=== PATIENT | female | born 1930 | race Caucasian/White ===

== ENCOUNTER → 2016-08-20 | Outpatient (CLI) | payer MEDICARE, BC ==
--- NOTE | 2016-08-21 06:48 | PE ---
EXAMINATION TYPE: PET CT fusion skull to thigh DATE OF EXAM: 08/20/2016 1:24 PM CLINICAL HISTORY: Melanoma initial staging study diagnosed right lower extremity TECHNIQUE: Following the intravenous administration of 12.28 mCi of F-18 FDG, whole body images are performed from the top of skull to the bottom of feet. Images are reviewed on the computer in the c oronal, axial, and sagittal planes. Reconstructed rotating images are created on independent worksta tion and reviewed on the computer. A non-contrast CT is performed in conjunction with the PET scan. COMPARISON: None. FINDINGS: BRAIN: Normal physiologic uptake in the brain parenchyma is present. No suspicious scalp or soft tiss ue uptake is noted. NECK: No suspicious hypermetabolic uptake is seen in the neck. CHEST, MEDIASTINUM, AND HILAR REGION: No suspicious hypermetabolic uptake is seen in the thorax. Norm al physiologic uptake in the left ventricular wall is noted. ABDOMEN AND PELVIS: No suspicious hypermetabolic uptake is seen in the abdomen or pelvis. Normal excr etion and collecting system and bladder is present.No suspicious groin uptake is present. OSSEOUS STRUCTURES: No suspicious hypermetabolic uptake is seen in osseous structures. LOWER EXTREMITIES: There is abnormal hypermetabolic uptake in soft tissue lesion anterior medially in the right lower leg mid to distal diaphyseal level on axial image 188 measuring 2.6 x 1.1 cm abuttin g the skin surface with max SUV of 9.38. Lesion nearly abuts the tibial outer cortex. Inferior to this there are several smaller hypermetabolic soft tissue nodules in the skin with abnor mal hypermetabolic uptake at distal metadiaphyseal level in the right extremity. No areas of suspicious hypermetabolic uptake are seen in the right foot or in the entire left lower e xtremity. OTHER CT: There is age-related cerebral atrophy and chronic small vessel ischemic change in visualize d brain parenchyma. There are scleral calcifications in both globes. There is moderate calcified plaque at left carotid bulb. Heart size is mildly enlarged with three-vessel coronary artery calcification noted. There is mild emphysematous change with dependent atelectatic change seen in both lower lobes. There is moderate calcified plaque in the aorta extending into pelvic branch vessels. There is anterior axis to the left kidney. Bladder is slightly low lying. There are scattered pelvic phleboliths. There are injection granulomas in the bilateral thighs lateral aspects. IMPRESSION: Neoplasm or melanoma appears to be confined to the distal right lower extremity medial as pect continues tissue as detailed above. No metastatic disease is evident.
== END | disposition home or self-care (01) ==
LOC: RADPETMAIN 09:00
PROVIDERS: ATTEND Nurse Practitioner
DX: C79.9 Secondary malignant neoplasm of unspecified site (principal); C43.71 Malignant melanoma of right lower limb, including hip
CPT/HCPCS: 78815; A9552

== ENCOUNTER → 2017-01-21 | Outpatient (CLI) | payer MEDICARE, BC ==
--- NOTE | 2017-01-22 08:50 | PE ---
EXAMINATION TYPE: PET CT fusion whole body DATE OF EXAM: 01/21/2017 CLINICAL HISTORY: 86-year-old female restaging melanoma. Original site of disease left leg per patien t status post surgery. TECHNIQUE: Following the intravenous administration of 15.71 mCi of F-18 FDG, whole body images are performed from the skull vertex through the lower extremities. Images are reviewed on the computer i n the coronal, axial, and sagittal planes. Reconstructed rotating images are created on independent workstation and reviewed on the computer. A localization and attenuation correction CT is performed in conjunction with the PET scan. Glucose level: 95 mg/dL CTDI: 2.88/1.44 mGY DLP: 358.38/92.44 mGy-cm COMPARISON: 08/20/2016 FINDINGS: PET: Physiologic FDG uptake within the head and neck. A 1.9 cm patch of groundglass anterior right upper lobe appears slightly larger measuring 1.6 cm, pre viously. There is very minimal associated FDG uptake, max SUV 1.0. A 5 mm right middle lobe pulmonary nodule axial image 133 is unchanged and shows no discrete FDG upta ke. Mildly enlarged 9 mm left para-aortic lymph node axial image 197 is slightly larger from prior exam w here it measured 7 mm. No discrete FDG uptake Variable mild and moderate bowel uptake is likely physiologic. Within the distal third aspect of the medial right leg, the previous large cutaneous and subcutaneous mass located anteromedially is slightly decreased now measuring 2.7 x 1.0 cm (max SUV 5.8) versus 2. 9 x 1.4 cm (max SUV 9.4), previously, the cutaneous mass located just posterior along the medial aspe ct of the length has increased in size measuring 1.7 x 0.8 cm (max SUV 5.0 versus 2.5, previously). I n addition, there are new numerous satellite nodules throughout the medial distal third leg soft tiss ues that show variable FDG uptake. Some abnormal nodules are now also present anteriorly reaching up to the mid leg level. A tiny 6 mm soft tissue nodule in the subcutaneous fat medially of the upper third leg is also suspic ious with mild FDG uptake, max SUV 1.2. ATTENUATION CORRECTION CT: Visualized intracranial structures show no gross abnormality. Paranasal sinuses and mastoid air cells appear clear. No cervical lymphadenopathy seen. The heart is normal size without pericardial effusion. Coronary vessel calcifications are present in remarkable for coronary artery disease. Moderate atherosclerotic arch calcifications with conventiona l arch vessel branching anatomy. Scattered nonenlarged mediastinal lymph nodes. Mild diffuse bronchi al wall thickening suggests bronchitis or chronic asthma. Strandy scarring/atelectasis at the lung ba ses. Small hiatal hernia. Moderate atherosclerotic calcifications within the abdominal aorta and iliac art eries. No dilated small bowel, free fluid, or free air. Multiple circumferential bladder wall thickening could represent cystitis. Clinically correlate. Uter us and ovaries are visualized. No abnormal fluid collection pelvis. Bones: Old healed fracture deformity proximal right humerus. Endplate spondylosis mid to lower thorac ic spine. There is a degenerated levoconvex scoliosis of the lumbar spine. Mild degenerative changes of hips. IMPRESSION: 1. Multiple cutaneous/subcutaneous masses along the medial aspect of the distal third right leg. Whil e the dominant mass is smaller (2.7 x 1.0 cm versus 2.9 x 1.4 cm) with decreased uptake, there is new and progressive satellite nodularity just adjacent. New nodules are now seen anteriorly at the mid l eg level and a tiny 6 mm subcutaneous nodule medial aspect of the proximal third leg is also suspicio us for metastatic disease. 2. A mildly enlarged 9 mm left paraaortic lymph node has increased in size but shows no discrete FDG uptake. A reactive lymph node is suggested. 3. An enlarging 1.9 cm patch of groundglass in the anterior left upper lobe. This shows minimal FDG u ptake. While an infectious/inflammatory focus is likely, continued follow-up is recommended to exclud e low-grade neoplasm such as adenocarcinoma. 4. The 5 mm right middle lobe pulmonary nodule is unchanged and shows no uptake suggesting a benign e tiology.
== END | disposition home or self-care (01) ==
LOC: RADPETMAIN 07:29
PROVIDERS: ATTEND Internal Medicine Hematology & Oncology
DX: C43.71 Malignant melanoma of right lower limb, including hip (principal); R91.1 Solitary pulmonary nodule; R91.8 Other nonspecific abnormal finding of lung field; R22.41 Localized swelling, mass and lump, right lower limb; R59.0 Localized enlarged lymph nodes
CPT/HCPCS: 78816; A9552

== ENCOUNTER → 2017-03-04 | Outpatient (CLI) | payer MEDICARE, BC ==
--- NOTE | 2017-03-05 21:08 | PE ---
Nuclear medicine PET/CT HISTORY: Melanoma Patient received 12.1 mCi F-18 FDG intravenously. Delayed scanning performed through the whole body. Correlation to prior nuclear medicine PET/CT 01/21/2017 Neck and chest: No suspicious hypermetabolic uptake. No evident adenopathy. Focus of abnormal increas ed attenuation in the left upper lobe is again noted, groundglass opacity is present as on prior exam , there is a right lung nodule which is also stable. No associated hypermetabolic uptake. Abdomen pelvis: No evident liver mass. No retroperitoneal adenopathy. No suspicious hypermetabolic up take. Osseous structures are stable, degenerative disc disease, spinal stenosis, facet arthropathy noted es pecially in the lumbar spine. EXTREMITIES: The areas of abnormal hypermetabolic uptake involving the distal right leg are scattered and diffuse as on prior exam. There is some slight interval growth in the soft tissue mass is within the skin and subcutaneous fat. SUV values are approximately 3-6. IMPRESSION: Some interval increase in size in the patient's masses within the right leg.
== END | disposition home or self-care (01) ==
LOC: RADPETMAIN 08:18
PROVIDERS: ATTEND Internal Medicine Hematology & Oncology
DX: C43.71 Malignant melanoma of right lower limb, including hip (principal)
CPT/HCPCS: 78816; A9552

== ENCOUNTER 2017-03-18 19:46 | Inpatient (IN) | payer MEDICARE, BC ==
[2017-03-18] MEDS ORDERED: SODIUM CHLORIDE 0.9% 500 ML IV STA (19:48)
[2017-03-18] MEDS ORDERED: SODIUM CHLORIDE 0.9% 1,000 ML IV STA (19:48)
--- NOTE | 2017-03-18 20:19 | ED ---
General Adult HPI - General Chief complaint: Fall Stated complaint: fall Time Seen by Provider: 03/18/17 19:48 Source: patient, family, EMS, RN notes reviewed, old records reviewed Mode of arrival: EMS Limitations: altered mental status, physical limitation - History of Present Illness Initial comments: This is a 87-year-old female to the ER for evaluation. This patient presents today for evaluation in regards to fall. Patient had what is likely a trip and fall but unknown, patient was found down and had an unknown amount of downtime. Patient's poor strain history obtained from EMS and patient's neighbor who called EMS who found patient on ground in house. Patient does appear to have deformity of right leg. - Related Data Home Medications Medication Instructions Recorded Confirmed Naproxen [Naprosyn] 375 mg PO Q12HR 11/28/15 03/19/17 Donepezil [Aricept] 10 mg PO HS 03/18/17 03/19/17 Nystatin 100,000Unit/gm Cream 1 applic TOPICAL BID 03/19/17 03/19/17 [Mycostatin Cream] Allergies Allergy/AdvReac Type Severity Reaction Status Date / Time No Known Allergies Allergy Verified 03/19/17 12:16 Review of Systems ROS Statement: Those systems with pertinent positive or pertinent negative responses have been documented in the HPI. ROS Other: All systems not noted in ROS Statement are negative. Past Medical History Past Medical History: Atrial Fibrillation, Rheumatoid Arthritis (RA) Additional Past Medical History / Comment(s): mitral valve prolapse osteoporosis melanoma to her RLE. History of Any Multi-Drug Resistant Organisms: None Reported Past Surgical History: No Surgical Hx Reported, Tonsillectomy Past Psychological History: No Psychological Hx Reported Smoking Status: Never smoker Past Alcohol Use History: None Reported Past Drug Use History: None Reported General Exam - General Exam Comments Initial Comments: Right leg deformity Limitations: altered mental status, physical limitation General appearance: alert, in no apparent distress, in distress, cachectic Head exam: Present: atraumatic, normocephalic, normal inspection Eye exam: Present: normal appearance, PERRL, EOMI. Absent: scleral icterus, conjunctival injection, periorbital swelling ENT exam: Present: normal exam, mucous membranes moist Neck exam: Present: normal inspection. Absent: tenderness, meningismus, lymphadenopathy Respiratory exam: Present: normal lung sounds bilaterally. Absent: respiratory distress, wheezes, rales, rhonchi, stridor Cardiovascular Exam: Present: regular rate, normal rhythm, normal heart sounds. Absent: systolic murmur, diastolic murmur, rubs, gallop, clicks GI/Abdominal exam: Present: soft, normal bowel sounds. Absent: distended, tenderness, guarding, rebound, rigid Extremities exam: Present: normal inspection, full ROM, normal capillary refill. Absent: tenderness, pedal edema, joint swelling, calf tenderness Back exam: Present: normal inspection Neurological exam: Present: alert, oriented X3, CN II-XII intact Psychiatric exam: Present: normal affect, normal mood Skin exam: Present: warm, dry, intact, normal color. Absent: rash Course Vital Signs 03/18/17 03/18/17 03/18/17 19:47 20:31 21:23 Temperature 98.2 F Pulse Rate 77 73 75 Respiratory 18 18 18 Rate Blood Pressure 204/84 192/82 177/68 O2 Sat by Pulse 98 100 100 Oximetry 03/18/17 22:20 Temperature Pulse Rate 72 Respiratory 18 Rate Blood Pressure 168/70 O2 Sat by Pulse 100 Oximetry - Reevaluation(s) Reevaluation #1: Spoke with family and patient at length, patient has dementia so difficult to portray and answer questions, but informed of diagnosis and questions are answered EKG Findings - EKG Comments: EKG Findings:: EKG shows normal sinus rhythm rate of 71, AK 160, QRS 76, QTC 445 Medical Decision Making - Medical Decision Making 87 female to ER presentation status post fall, prolonged down.. Positive urinary check infection which we'll treat with IV antibiotics, patient will be given adequate pain control admitted for orthopedic evaluation regarding right hip fracture - Lab Data Result diagrams: 03/18/17 20:20 03/18/17 20:20 Lab Results 03/18/17 03/18/17 03/18/17 Range/Units 20:19 20:20 20:20 WBC 10.4 (3.8-10.6) k/uL RBC 3.74 L (3.80-5.40) m/uL Hgb 10.7 L (11.4-16.0) gm/dL Hct 34.2 (34.0-46.0) % MCV 91.5 (80.0-100.0) fL MCH 28.6 (25.0-35.0) pg MCHC 31.3 (31.0-37.0) g/dL RDW 14.6 (11.5-15.5) % Plt Count 255 (150-450) k/uL Neutrophils % 78 % Lymphocytes % 12 % Monocytes % 8 % Eosinophils % 0 % Basophils % 0 % Neutrophils # 8.1 H (1.3-7.7) k/uL Lymphocytes # 1.2 (1.0-4.8) k/uL Monocytes # 0.8 (0-1.0) k/uL Eosinophils # 0.0 (0-0.7) k/uL Basophils # 0.0 (0-0.2) k/uL Hypochromasia Moderate PT (9.0-12.0) sec INR (<1.2) APTT (22.0-30.0) sec Sodium (137-145) mmol/L Potassium (3.5-5.1) mmol/L Chloride (98-107) mmol/L Carbon Dioxide (22-30) mmol/L Anion Gap mmol/L BUN (7-17) mg/dL Creatinine (0.52-1.04) mg/dL Est GFR (MDRD) Af Amer (>60 ml/min/1.73 sqM) Est GFR (MDRD) Non-Af (>60 ml/min/1.73 sqM) Glucose (74-99) mg/dL Plasma Lactic Acid Jorge Luis (0.7-2.0) mmol/L Calcium (8.4-10.2) mg/dL Phosphorus (2.5-4.5) mg/dL Total Bilirubin (0.2-1.3) mg/dL AST (14-36) U/L ALT (9-52) U/L Alkaline Phosphatase (38-126) U/L Total Creatine Kinase 783 H (30-135) U/L CK-MB (CK-2) 9.6 H* (0.0-2.4) ng/mL CK-MB (CK-2) Rel Index 1.2 Troponin I 0.024 (0.000-0.034) ng/mL Total Protein (6.3-8.2) g/dL Albumin (3.5-5.0) g/dL Urine Color Light Green Urine Appearance Turbid H (Clear) Urine pH 5.5 (5.0-8.0) Ur Specific [place] 1.014 (1.001-1.035) Urine Protein 2+ H (Negative) Urine Glucose (UA) Negative (Negative) Urine Ketones Negative (Negative) Urine Blood Small H (Negative) Urine Nitrite Positive H (Negative) Urine Bilirubin Negative (Negative) Urine Urobilinogen <2.0 (<2.0) mg/dL Ur Leukocyte Esterase Large H (Negative) Urine RBC 97 H (0-5) /hpf Urine WBC >182 H (0-5) /hpf Urine WBC Clumps Many H (None) /hpf Amorphous Sediment Moderate H (None) /hpf Urine Bacteria Few H (None) /hpf 03/18/17 03/18/17 03/18/17 Range/Units 20:20 20:20 20:20 WBC (3.8-10.6) k/uL RBC (3.80-5.40) m/uL Hgb (11.4-16.0) gm/dL Hct (34.0-46.0) % MCV (80.0-100.0) fL MCH (25.0-35.0) pg MCHC (31.0-37.0) g/dL RDW (11.5-15.5) % Plt Count (150-450) k/uL Neutrophils % % Lymphocytes % % Monocytes % % Eosinophils % % Basophils % % Neutrophils # (1.3-7.7) k/uL Lymphocytes # (1.0-4.8) k/uL Monocytes # (0-1.0) k/uL Eosinophils # (0-0.7) k/uL Basophils # (0-0.2) k/uL Hypochromasia PT 11.9 (9.0-12.0) sec INR 1.2 H (<1.2) APTT 24.3 (22.0-30.0) sec Sodium 138 (137-145) mmol/L Potassium 4.3 (3.5-5.1) mmol/L Chloride 107 (98-107) mmol/L Carbon Dioxide 23 (22-30) mmol/L Anion Gap 8 mmol/L BUN 20 H (7-17) mg/dL Creatinine 0.63 (0.52-1.04) mg/dL Est GFR (MDRD) Af Amer >60 (>60 ml/min/1.73 sqM) Est GFR (MDRD) Non-Af >60 (>60 ml/min/1.73 sqM) Glucose 104 H (74-99) mg/dL Plasma Lactic Acid Jorge Luis 1.2 (0.7-2.0) mmol/L Calcium 9.2 (8.4-10.2) mg/dL Phosphorus 3.4 (2.5-4.5) mg/dL Total Bilirubin 1.0 (0.2-1.3) mg/dL AST 49 H (14-36) U/L ALT 31 (9-52) U/L Alkaline Phosphatase 59 (38-126) U/L Total Creatine Kinase (30-135) U/L CK-MB (CK-2) (0.0-2.4) ng/mL CK-MB (CK-2) Rel Index Troponin I (0.000-0.034) ng/mL Total Protein 6.1 L (6.3-8.2) g/dL Albumin 3.4 L (3.5-5.0) g/dL Urine Color Urine Appearance (Clear) Urine pH (5.0-8.0) Ur Specific [place] (1.001-1.035) Urine Protein (Negative) Urine Glucose (UA) (Negative) Urine Ketones (Negative) Urine Blood (Negative) Urine Nitrite (Negative) Urine Bilirubin (Negative) Urine Urobilinogen (<2.0) mg/dL Ur Leukocyte Esterase (Negative) Urine RBC (0-5) /hpf Urine WBC (0-5) /hpf Urine WBC Clumps (None) /hpf Amorphous Sediment (None) /hpf Urine Bacteria (None) /hpf - Radiology Data Radiology results: report reviewed (CT brain and C-spine are negative for acute disease, chest x-ray is negative, x-ray right hip is positive for IT fracture), image reviewed Disposition Clinical Impression: Fall, Hip fracture, right, UTI (urinary tract infection) Disposition: ADMITTED IP TO THIS [facility] Condition: Fair
[2017-03-18 20:51] LABS: Basophils % (A) 0 %; CH 27.9; CHCM 30.7; Eosinophils % (A) 0 %; HCT 34.2 % (34.0-46.0); HDW 2.62; HGB 10.7 gm/dL (11.4-16.0); Hypochromasia Moderate; Luc # (Auto) 0.17; Luc % (Auto) 2; Lymphocytes # (A) 1.2 k/uL (1.0-4.8); Lymphocytes % (A) 12 %; MCH 28.6 pg (25.0-35.0); MCHC 31.3 g/dL (31.0-37.0); MCV 91.5 fL (80.0-100.0); Mean Platelet Volume 7.3; Monocytes # (A) 0.8 k/uL (0-1.0); Monocytes % (A) 8 %; Neutrophils # (A) 8.1 k/uL (1.3-7.7); Neutrophils % (A) 78 %; RBC 3.74 m/uL (3.80-5.40); RDW 14.6 % (11.5-15.5); WBC 10.4 k/uL (3.8-10.6); WBC (Perox) 10.71
[2017-03-18 20:59] LABS: ALT 31 U/L (9-52); AST 49 U/L (14-36); Alkaline Phosphatase 59 U/L (38-126); Anion Gap 8 mmol/L; Blood Urea Nitrogen 20 mg/dL (7-17); Calcium 9.2 mg/dL (8.4-10.2); Carbon Dioxide 23 mmol/L (22-30); Chloride 107 mmol/L (98-107); Glucose 104 mg/dL (74-99); Non-African American GFR(MDRD) >60 (>60 ml/min/1.73 sqM); Phosphorus 3.4 mg/dL (2.5-4.5); Potassium 4.3 mmol/L (3.5-5.1); Sodium 138 mmol/L (137-145); Total Protein 6.1 g/dL (6.3-8.2)
[2017-03-18] MEDS ORDERED: MORPHINE SULFATE 2 MG/ML SYRINGE IVP STA (21:00)
[2017-03-18] MEDS ORDERED: cefTRIAXone 2,000 MG in SODIUM CHLORIDE 0.9% 100 ML IVPB STA (21:00)
[2017-03-18] MEDS ORDERED: MORPHINE SULFATE 2 MG/ML SYRINGE IVP PRN (21:00)
--- NOTE | 2017-03-18 21:00 | CT ---
EXAMINATION TYPE: CT brain edna [place] DATE OF EXAM: 03/18/2017 COMPARISON: NONE HISTORY: Fall today. Complains of right sided hip pain CT DLP: 1413.3 mGycm Automated exposure control for dose reduction was used. TECHNIQUE: CT scan of the head and cervical spine are performed without contrast. FINDINGS: There is no acute intracranial hemorrhage, mass effect, or midline shift identified. The ventricles and sulci are atrophic. The globes are intact and the visualized sinuses are clear. No acute fracture or dislocation is noted in the cervical spine. There is diffuse amounts of endplate spurring as well as facet hypertrophy which cause multiple low-level neural foraminal narrowing. The se findings appear worse at the level C5-6 and C6-7 where there is posterior endplate spurring and hy pertrophic spurring which effaces the ventral thecal sac and causes mild neural foraminal narrowing. IMPRESSION: Senescent and degenerative changes are identified without an acute abnormality.
[2017-03-18 21:01] LABS: Amorphous Sediment,Urine Moderate /hpf; Appearance,Urine Turbid (Clear); Bacteria,Urine Few /hpf; Bilirubin,Urine Negative (Negative); Glucose,Urine (UA) Negative (Negative); Ketones,Urine Negative (Negative); Leukocyte Esterase,Urine Large (Negative); Nitrite,Urine Positive (Negative); PH, Urine 5.5 (5.0-8.0); Particle Count 174400; Protein,Urine 2+ (Negative); RBC,Urine 97 /hpf (0-5); Specific Gravity,Urine 1.014 (1.001-1.035); UA Billing (MACRO vs. MICRO) MICRO; Urobilinogen,Urine <2.0 mg/dL (<2.0); WBC,Urine >182 /hpf (0-5)
--- NOTE | 2017-03-18 21:11 | XR ---
EXAMINATION TYPE: XR chest 1V DATE OF EXAM: 03/18/2017 COMPARISON: NONE HISTORY: Right hip pain and chest pain. TECHNIQUE: Single frontal view of the chest is obtained. FINDINGS: There is no focal air space opacity, pleural effusion, or pneumothorax seen. The cardiac silhouette size is within normal limits. Calcifications are identified in the aortic arch. The osse ous structures are intact. IMPRESSION: No acute process.
[2017-03-18 21:12] LABS: Partial Thromboplastin Time 24.3 sec (22.0-30.0)
--- NOTE | 2017-03-18 21:14 | XR ---
EXAMINATION TYPE: XR Hip RT and AP Pelvis DATE OF EXAM: 03/18/2017 COMPARISON: NONE HISTORY: Right hip pain TECHNIQUE: A single AP view of the pelvis is obtained. Two views of the right hip are obtained. FINDINGS: There is an acute complete comminuted fracture of the intertrochanteric right hip. There is 4 cm of impaction. The distal fragment is displaced medially. Soft tissue structures demonstrate stool within the colon. There is diffuse osteopenia. IMPRESSION: Acute complete comminuted intertrochanteric fracture of the right femur with impaction and slight med ial displacement.
[2017-03-18 21:15] LABS: INR 1.2 (<1.2); Prothrombin Time 11.9 sec (9.0-12.0)
[2017-03-18 21:25] LABS: Troponin I 0.024 ng/mL (0.000-0.034)
[2017-03-18 21:32] LABS: Creatine Kinase MB 9.6 ng/mL (0.0-2.4)
[2017-03-18] MEDS ORDERED: FLUCONAZOLE 150 MG TAB PO STA (22:17)
--- NOTE | 2017-03-19 08:43 | P.CNOR ---
History of Present Illness - [facility] Consult date: 03/19/17 Consult reason: fracture (Right hip) History of present illness: This is an 87-year-old female who fell sustaining injury to her right hip. On exam and x-ray in the emergency department she was found to have a subtrochanteric fracture of the right hip. She is admitted to internal medicine and we are consulted for orthopedic evaluation. The patient has history of dementia and history of atrial fibrillation. Past Medical History Past Medical History: Atrial Fibrillation, Rheumatoid Arthritis (RA) Additional Past Medical History / Comment(s): mitral valve prolapse osteoporosis melanoma to her RLE. History of Any Multi-Drug Resistant Organisms: None Reported Past Surgical History: No Surgical Hx Reported, Tonsillectomy Past Anesthesia/Blood Transfusion Reactions: No Reported Reaction Past Psychological History: No Psychological Hx Reported Smoking Status: Never smoker Past Alcohol Use History: None Reported Past Drug Use History: None Reported Medications and Allergies Home Medications Medication Instructions Recorded Confirmed Type Aspirin [Aspirin EC] 500 mg PO BID 11/28/15 11/28/15 History Naproxen [Naprosyn] 375 mg PO Q12HR 11/28/15 11/28/15 History Donepezil [Aricept] 1 mg PO HS 03/18/17 03/18/17 History Allergies Allergy/AdvReac Type Severity Reaction Status Date / Time No Known Allergies Allergy Verified 03/18/17 20:14 Physical Examination This is a pleasant 87-year-old female in no acute distress. She is sleeping soundly. She does not awaken during the exam. Exam of the head neck reveal no obvious deformity. There is no sign of trauma to the face. Exam of the upper extremities unremarkable. No swelling or deformity noted to the elbows or wrists. Exam of the lower extremities reveal shortening and external rotation of the right leg. There are multiple invasive lesions about the right lower leg. No sign of infection to this area. Pedal pulses +1/4. Results X-ray of the pelvis and right hip reveal a displaced and shortened subtrochanteric fracture of the right hip. - Labs Labs: Abnormal Lab Results - Last 24 Hours (Table) 03/18/17 03/18/17 03/18/17 Range/Units 20:19 20:20 20:20 RBC 3.74 L (3.80-5.40) m/uL Hgb 10.7 L (11.4-16.0) gm/dL Neutrophils # 8.1 H (1.3-7.7) k/uL INR (<1.2) BUN (7-17) mg/dL Glucose (74-99) mg/dL AST (14-36) U/L Total Creatine Kinase 783 H (30-135) U/L CK-MB (CK-2) 9.6 H* (0.0-2.4) ng/mL Total Protein (6.3-8.2) g/dL Albumin (3.5-5.0) g/dL Urine Appearance Turbid H (Clear) Urine Protein 2+ H (Negative) Urine Blood Small H (Negative) Urine Nitrite Positive H (Negative) Ur Leukocyte Esterase Large H (Negative) Urine RBC 97 H (0-5) /hpf Urine WBC >182 H (0-5) /hpf Urine WBC Clumps Many H (None) /hpf Amorphous Sediment Moderate H (None) /hpf Urine Bacteria Few H (None) /hpf 03/18/17 03/18/17 Range/Units 20:20 20:20 RBC (3.80-5.40) m/uL Hgb (11.4-16.0) gm/dL Neutrophils # (1.3-7.7) k/uL INR 1.2 H (<1.2) BUN 20 H (7-17) mg/dL Glucose 104 H (74-99) mg/dL AST 49 H (14-36) U/L Total Creatine Kinase (30-135) U/L CK-MB (CK-2) (0.0-2.4) ng/mL Total Protein 6.1 L (6.3-8.2) g/dL Albumin 3.4 L (3.5-5.0) g/dL Urine Appearance (Clear) Urine Protein (Negative) Urine Blood (Negative) Urine Nitrite (Negative) Ur Leukocyte Esterase (Negative) Urine RBC (0-5) /hpf Urine WBC (0-5) /hpf Urine WBC Clumps (None) /hpf Amorphous Sediment (None) /hpf Urine Bacteria (None) /hpf H & H 03/18/17 Range/Units 20:20 Hgb 10.7 L (11.4-16.0) gm/dL Hct 34.2 (34.0-46.0) % Coagulation 03/18/17 Range/Units 20:20 INR 1.2 H (<1.2) Result Diagrams: 03/18/17 20:20 03/18/17 20:20 Assessment and Plan (1) Subtrochanteric fracture of right femur Status: Acute (2) Malignant melanoma of right lower leg Status: Acute Plan: The clinical and x-ray findings are discussed with the nursing staff. We're planning closed reduction and insertion of long intertrochanteric nail of the right hip today if cleared. We'll contact the legal guardian for consent.
[2017-03-19] MEDS: ENOXAPARIN 40 MG/0.4 ML SYRINGE SQ SCH (09:07)
[2017-03-19] MEDS ORDERED: ACETAMINOPHEN TAB 325 MG TAB PO PRN (09:14)
[2017-03-19] MEDS ORDERED: KETOROLAC 30 MG/ML 1 ML VIAL IVP PRN (09:14)
--- NOTE | 2017-03-19 09:21 | P.HPIM ---
History of Present Illness 16-year-old female was admitted for right hip fracture patient appears to a mechanical fracture and subtrochanteric fracture of the right hip and patient is going for surgery today. Patient appears to be independent at home and I'm unable to get much of the history from the patient most of the history was obtained from the nursing staff and the medical record it appears patient has a history of atrial fibrillation on anti-correlation not on any medications at home patient does not have any history of Congestive heart failure or coronary artery disease. Patient is confused because the opiate pain medications and I' m unable to get much of the history from the patient I do not know her baseline mental status. Chest x-ray did not show any pneumonic process compresses metabolic profile and basic metabolic profile did not show any significant abnormality. Patient will be low to intermediate risk for surgery just because the age, recent benefits will be expanded to the patient and surgery does definitely improved functionality because of which I would recommend to the patient and family to proceed with the surgery. Review of Systems Unable to obtain due to her clinical condition Past Medical History Past Medical History: Atrial Fibrillation, Rheumatoid Arthritis (RA) Additional Past Medical History / Comment(s): mitral valve prolapse osteoporosis melanoma to her RLE. History of Any Multi-Drug Resistant Organisms: None Reported Past Surgical History: No Surgical Hx Reported, Tonsillectomy Past Anesthesia/Blood Transfusion Reactions: No Reported Reaction Past Psychological History: No Psychological Hx Reported Smoking Status: Never smoker Past Alcohol Use History: None Reported Past Drug Use History: None Reported Medications and Allergies Home Medications Medication Instructions Recorded Confirmed Type Aspirin [Aspirin EC] 500 mg PO BID 11/28/15 11/28/15 History Naproxen [Naprosyn] 375 mg PO Q12HR 11/28/15 11/28/15 History Donepezil [Aricept] 1 mg PO HS 03/18/17 03/18/17 History Allergies Allergy/AdvReac Type Severity Reaction Status Date / Time No Known Allergies Allergy Verified 03/18/17 20:14 Physical Exam Vitals: Vital Signs Temp Pulse Pulse Resp BP BP Pulse Ox 03/18/17 22:51 97.9 F 92 16 169/69 100 03/18/17 22:20 72 18 168/70 100 03/18/17 21:23 75 18 177/68 100 03/18/17 20:31 73 18 192/82 100 03/18/17 19:47 98.2 F 77 18 204/84 98 Intake and Output 03/18/17 03/19/17 03/19/17 22:59 06:59 14:59 Intake Total 900 Balance 900 Intake: Intake, IV Titration 900 Amount Sodium Chloride 0.9% 1, 800 000 ml @ 100 mls/hr IV . Q10H [facility] Rx#:[id number] cefTRIAXone 1,000 mg In 100 Sodium Chloride 0.9% 50 ml @ 100 mls/hr IVPB Q24HR [facility] Rx#:[id number] Other: Voiding Method Indwelling Catheter # Bowel Movements 1 Weight 63.503 kg PHYSICAL EXAMINATION: GENERAL: The patient is sleepy unable doses orientation, not in any acute distress. Well developed, well nourished. HEENT: Pupils are round and equally reacting to light. EOMI. No scleral icterus. No conjunctival pallor. Normocephalic, atraumatic. No pharyngeal erythema. No thyromegaly. CARDIOVASCULAR: S1 and S2 present. No murmurs, rubs, or gallops. PULMONARY: Chest is clear to auscultation, no wheezing or crackles. ABDOMEN: Soft, nontender, nondistended, normoactive bowel sounds. No palpable organomegaly. MUSCULOSKELETAL: No joint swelling or deformity. EXTREMITIES: Deferred to orthopedic surgery NEUROLOGICAL: Gross neurological examination did not reveal any focal deficits. SKIN: No rashes. Results CBC & Chem 7: 03/18/17 20:20 03/18/17 20:20 Labs: Abnormal Lab Results - Last 24 Hours (Table) 03/18/17 03/18/17 03/18/17 Range/Units 20:19 20:20 20:20 RBC 3.74 L (3.80-5.40) m/uL Hgb 10.7 L (11.4-16.0) gm/dL Neutrophils # 8.1 H (1.3-7.7) k/uL INR (<1.2) BUN (7-17) mg/dL Glucose (74-99) mg/dL AST (14-36) U/L Total Creatine Kinase 783 H (30-135) U/L CK-MB (CK-2) 9.6 H* (0.0-2.4) ng/mL Total Protein (6.3-8.2) g/dL Albumin (3.5-5.0) g/dL Urine Appearance Turbid H (Clear) Urine Protein 2+ H (Negative) Urine Blood Small H (Negative) Urine Nitrite Positive H (Negative) Ur Leukocyte Esterase Large H (Negative) Urine RBC 97 H (0-5) /hpf Urine WBC >182 H (0-5) /hpf Urine WBC Clumps Many H (None) /hpf Amorphous Sediment Moderate H (None) /hpf Urine Bacteria Few H (None) /hpf 03/18/17 03/18/17 Range/Units 20:20 20:20 RBC (3.80-5.40) m/uL Hgb (11.4-16.0) gm/dL Neutrophils # (1.3-7.7) k/uL INR 1.2 H (<1.2) BUN 20 H (7-17) mg/dL Glucose 104 H (74-99) mg/dL AST 49 H (14-36) U/L Total Creatine Kinase (30-135) U/L CK-MB (CK-2) (0.0-2.4) ng/mL Total Protein 6.1 L (6.3-8.2) g/dL Albumin 3.4 L (3.5-5.0) g/dL Urine Appearance (Clear) Urine Protein (Negative) Urine Blood (Negative) Urine Nitrite (Negative) Ur Leukocyte Esterase (Negative) Urine RBC (0-5) /hpf Urine WBC (0-5) /hpf Urine WBC Clumps (None) /hpf Amorphous Sediment (None) /hpf Urine Bacteria (None) /hpf Thrombosis Risk Factor Assmnt - Choose All That Apply Each Risk Factor Represents 3 Points: Age 75 years or older Each Risk Factor Represents 5 Points: Hip, pelvis, or leg fracture (< 1 month) Thrombosis Risk Factor Assessment Total Risk Factor Score: 8 Thrombosis Risk Factor Assessment Level: High Risk Assessment and Plan Plan: #1 right intertrochanteric fracture: As mentioned above patient is low to intermediate risk for surgery. With a history of atrial fibrillation then the chance that patient can go into atrial fibrillation. We'll closely monitor and manage accordingly. #2 pain management: The common to avoid opiate and ALLERGIES here, benzodiazepines barbiturates are anticollagen medications considering her age and moderate dementia. We will use ketorolac, tramadol and Tylenol for pain. DVT prophylaxis as per orthopedic surgery. #3 atrial fibrillation: Patient is presently sinus rhythm will not start her on a beta devin as there is not enough time for titration. 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
[2017-03-19] MEDS ORDERED: ceFAZolin 1,000 MG VIAL ONE (10:14)
[2017-03-19] MEDS ORDERED: KETAMINE 10 MG/ML 20 ML VIAL ONE (10:14)
[2017-03-19] MEDS ORDERED: diphenhydrAMINE 50 MG/ML 1 ML VIAL ONE (10:14)
[2017-03-19] MEDS ORDERED: MIDAZOLAM 2 MG/2 ML VIAL ONE (10:14)
[2017-03-19] MEDS ORDERED: fentaNYL (PF) 50 MCG/ML 2 ML AMP ONE (10:14)
[2017-03-19] MEDS ORDERED: IV FLUID CONTINUATION 1,000 ML IV ONE (10:14)
[2017-03-19] MEDS ORDERED: SODIUM CHLORIDE 0.9% 100 ML BAG ONE (10:14)
[2017-03-19] MEDS ORDERED: SODIUM CHLORIDE 0.9% 100 ML with ceFAZolin 1,000 MG IV ONE ×2 (10:45)
[2017-03-19] MEDS ORDERED: ceFAZolin 1,000 MG in SODIUM CHLORIDE 0.9% 1,000 ML IRRIGATION ONE (10:51)
--- NOTE | 2017-03-19 12:09 | FL ---
FLUOROSCOPY 2.25 minutes of fluoroscopy time were utilized during intramedullary rashawn fixation of the right hip. 5 images document the procedure.
[2017-03-19 12:14] VITALS: RESP 16
[2017-03-19] MEDS ORDERED: Acetaminophen-Codeine 300-30mg TAB PO PRN ×2 (12:14)
[2017-03-19] MEDS ORDERED: MORPHINE SULFATE 2 MG/ML SYRINGE IV PRN ×4 (12:14)
[2017-03-19] MEDS ORDERED: NALOXONE 0.4 MG/ML 1 ML VIAL IV PRN (12:14)
--- NOTE | 2017-03-19 12:14 | P.OP ---
Date of Procedure: 03/19/17 Procedure(s) Performed: SURGEON: KARLA DELGADO MD PREOPERATIVE DIAGNOSIS: Right hip intertrochanteric/subtrochanteric fracture. POSTOPERATIVE DIAGNOSIS: Right hip intertrochanteric/subtrochanteric fracture. OPERATION: Right hip intertrochanteric/subtrochanteric fracture closed reduction and intramedullary nailing using long Synthes IT nail. ANESTHESIA: General ESTIMATED BLOOD LOSS: 100 mL. SPECIMENS REMOVED: None COMPLICATIONS: None OPERATIVE FINDINGS: See below INDICATIONS: Mrs. Adams is a 87-year-old female with a history of falling and sustaining a fracture of right hip. The fracture is a comminuted fracture involving the intertrochanteric and subtrochanteric regions of the proximal femur. The patient has a history of dementia and melanoma. Clearance has been obtained. The fracture is displaced and the patient is in need of surgical fixation. The patient's family wishes to proceed with the operation after explanation of the steps of the procedure as well as potential risks and complications. These have been explained as being inclusive of, but not limited to: Bleeding, infection, scarring, discomfort, blood vessel and/or nerve damage, malunion, nonunion, blood clot, pulmonary embolism, need for further surgery, gait disturbance, , and other risks. The consent form has been authorized. PROCEDURE: After appropriate consent was obtained, the patient was taken to the operating room and placed in supine position. Spinal anesthetic was administered and after confirmation of adequate anesthesia, the patient was carefully placed in the supine position on the operating room table in the fracture table. The patient was placed up against a well-padded peroneal post. Care was taken to make sure about that all pressure points were adequately padded. The affected leg was placed in boot traction and the unaffected leg was placed in a well leg houser. The melanoma lesions on her right leg were carefully protected using multiple pads as it was being placed into the traction boot. No knee effusion was noted. C-arm imaging was used prior to application of traction to assess the leg from the ankle to the hip for the presence of any obvious bony metastases. Using gentle longitudinal distraction as well as adduction and internal rotation, the fracture was reduced as assessed by AP and lateral C-arm imaging. This included a combination of longitudinal distraction with the fracture table frame, rotation both internally and externally until a satisfactory rotational alignment was achieved , and manual manipulation at the fracture site through the skin. Once a satisfactory reduction had been obtained, the thigh was prepped and draped in the usual aseptic fashion using ChloraPrep. Ioban drape was used for the case and the patient received intravenous antibiotics prior to incision. The incision was then created with a #10 blade just proximal to the greater trochanter laterally. It was carried down through skin into the subcutaneous tissues and through fascia. Hemostasis was obtained using electrocautery. The tip of the greater trochanter was palpated and a guide pin was placed at the tip and directed into the femoral shaft as assessed with C-arm imaging. Once optimal pin position had been obtained, a 17 mm reamer was used over the guide pin to create a path for the IT nail. A long IT nail was selected as the fracture extended below the lesser trochanter. Measurements were taken for size of nail. A long guide pin was then placed into the medullary canal of the femur and reaming was performed to size 12 mm. IT nail selected was assembled to the insertion jig on the back table and bushings were checked for accuracy. The nail was then inserted using gentle mallet taps until it was fully deployed. During insertion, the fracture was attempted to be held in anatomic alignment with the use of manual pressure externally. The amount of rotation of the implant was assessed based on the amount of anteversion of the femoral neck. This was rotated to match the patient 's femoral neck anteversion and the helical blade guide was placed through the insertion jig and through an incision on the lateral side of the thigh more distal than the first. Once this guide was placed against the lateral cortex of the femur, a guide pin was drilled into the central region of the femoral head and neck as based on AP and lateral C-arm imaging. Once optimal pin position had been obtained, the guidewire was measured and appropriately sized helical blade was selected. The path for the helical blade was prepared using a tapered reamer. The helical blade was then inserted using gentle mallet taps along the guidewire until it was fully deployed. There was no displacement of the fracture during this step. The anti-rotation screw was locked down and the insertion apparatus for the helical blade was removed. The guide pin was then removed. Traction was then removed from the leg and the distal interlocks were placed using standard freehand technique. Finally, the insertion jig for the nail was removed and final C-arm images were taken and saved in both AP and lateral planes. The final x-rays showed satisfactory positioning of the implant and satisfactory reduction of the fracture. The top of the nail was plugged with a small quantity of bone wax and the incisions were then thoroughly irrigated with normal saline. Final hemostasis was obtained using electrocautery and closure of the fascia was performed using 0-Vicryl suture. 2-0 Vicryl suture was used in the subcutaneous tissues and gato were used for the skin. Sterile dressing was then applied and the patient was carefully removed from the fracture table frame and placed onto the stretcher. The patient tolerated the procedure well. There were no complications and approximately 100 mL of blood loss. The patient was then subsequently transferred to recovery room in stable condition. Sponge and needle counts were correct.
[2017-03-19] MEDS ORDERED: ceFAZolin 2 GM in SODIUM CHLORIDE 0.9% 100 ML IVPB SCH (16:00)
[2017-03-19] MEDS ORDERED: SENNOSIDES-DOCUSATE SODIUM 1 EACH TAB PO SCH (21:00)
[2017-03-20] MEDS: traMADol 50 MG TAB PO PRN ×3 (04:10→20:33)
[2017-03-20] MEDS ORDERED: ENOXAPARIN 40 MG/0.4 ML SYRINGE SQ SCH (09:00)
[2017-03-20] MEDS: ENOXAPARIN 40 MG/0.4 ML SYRINGE SQ SCH (09:11)
[2017-03-20] MEDS ORDERED: MULTIVITAMINS, THERA 1 EACH TAB PO SCH (12:00)
--- NOTE | 2017-03-20 13:49 | P.PN ---
Subjective Progress Note Date: 03/20/17 Principal diagnosis: Subtrochanteric fracture right hip. Status post closed reduction insertion intertrochanteric nail right hip. This is an 87-year-old female who is status post close reduction and insertion of intertrochanteric nail of the right hip. She is stable from an orthopedic standpoint. She is much more alert today. She has no new complaints or concerns today. Vital signs and labs are stable. Objective - Vital Signs Vital signs: Vital Signs Temp 98.1 F 03/20/17 07:06 Pulse 70 03/20/17 07:06 Resp 16 03/20/17 07:33 BP 155/70 03/20/17 07:06 Pulse Ox 99 03/20/17 07:06 Intake & Output 03/19/17 03/20/17 03/20/17 18:59 06:59 18:59 Intake Total 1601 1900 600 Output Total 100 Balance 1501 1900 600 Intake: IV 801 1150 Sodium Chloride 0.9% 1, 300 1150 000 ml @ 100 mls/hr IV . Q10H [facility] Rx#:[id number] Intake, IV Titration 600 Amount Sodium Chloride 0.9% 100 600 ml As IV .STK-MED ONE with ceFAZolin 1,000 mg Rx#:[id number] Oral 800 750 Output: Urine 50 Estimated Blood Loss 50 Other: Voiding Method Indwelling Catheter Indwelling Catheter Indwelling Catheter # Bowel Movements 1 - Exam This is a pleasant 87-year-old female in no acute distress. She is much more alert today. Exam of the right lower extremity reveals that her incisions look good with no sign of infection. There is no erythema. There is minimal drainage on the dressing. She has full foot and ankle motion without difficulty or pain. Neurovascular status to the lower extremities intact. Multiple lesions about the lower leg as previously described. - Labs CBC & Chem 7: 03/18/17 20:20 03/18/17 20:20 Labs: Microbiology - Last 24 Hours (Table) 03/18/17 20:19 Urine Culture - Preliminary Urine,Catheterized Gram Neg Bacilli 03/18/17 20:20 Blood Culture - Preliminary Blood No Growth after 24 hours Assessment and Plan (1) Subtrochanteric fracture of right femur Status: Acute (2) Malignant melanoma of right lower leg Status: Acute Plan: The clinical findings are discussed the patient and her nurse. We will continue with physical therapy. We're planning discharge to inpatient rehab when cleared medically.
--- NOTE | 2017-03-20 14:12 | P.PN ---
Subjective patient's x-ray underwent surgery and patient is clinically doing well pain is well-controlled on Tylenol and tramadol.patient is on Rocephin for possible urinary tract infection urination gram-negative bacilli. Constitutional: Denied any fatigue denied any fever. Cardio vascular: denied any chest pain, palpitations Gastrointestinal denied any nausea vomiting Pulmonary: Denied any shortness of breath cough Neurologic denied any new focal deficits Objective - Vital Signs Vital signs: Vital Signs Temp 98.1 F 03/20/17 07:06 Pulse 70 03/20/17 07:06 Resp 16 03/20/17 07:33 BP 155/70 03/20/17 07:06 Pulse Ox 99 03/20/17 07:06 Intake & Output 03/19/17 03/20/17 03/20/17 18:59 06:59 18:59 Intake Total 1601 1900 600 Output Total 100 Balance 1501 1900 600 Intake: IV 801 1150 Sodium Chloride 0.9% 1, 300 1150 000 ml @ 100 mls/hr IV . Q10H [facility] Rx#:[id number] Intake, IV Titration 600 Amount Sodium Chloride 0.9% 100 600 ml As IV .STK-MED ONE with ceFAZolin 1,000 mg Rx#:[id number] Oral 800 750 Output: Urine 50 Estimated Blood Loss 50 Other: Voiding Method Indwelling Catheter Indwelling Catheter Indwelling Catheter # Bowel Movements 1 - Exam PHYSICAL EXAMINATION: GENERAL: The patient is alert and oriented x3, not in any acute distress. Well developed, well nourished. HEENT: Pupils are round and equally reacting to light. EOMI. No scleral icterus. No conjunctival pallor. Normocephalic, atraumatic. No pharyngeal erythema. No thyromegaly. CARDIOVASCULAR: S1 and S2 present. No murmurs, rubs, or gallops. PULMONARY: Chest is clear to auscultation, no wheezing or crackles. ABDOMEN: Soft, nontender, nondistended, normoactive bowel sounds. No palpable organomegaly. MUSCULOSKELETAL: No joint swelling or deformity. EXTREMITIES: No cyanosis, clubbing, or pedal edema. NEUROLOGICAL: Gross neurological examination did not reveal any focal deficits. SKIN: No rashes. - Labs CBC & Chem 7: 03/18/17 20:20 03/18/17 20:20 Labs: Microbiology - Last 24 Hours (Table) 03/18/17 20:19 Urine Culture - Preliminary Urine,Catheterized Gram Neg Bacilli 03/18/17 20:20 Blood Culture - Preliminary Blood No Growth after 24 hours Assessment and Plan Plan: #1 right intertrochanteric fracture: clinically doing well after surgery, pain is well-controlled with the Tylenol and tramadol #2 pain management: The common to avoid opiate and ALLERGIES here, benzodiazepines barbiturates are anticollagen medications considering her age and moderate dementia. DVT prophylaxis as per orthopedic surgery. #3 atrial fibrillation: Patient is presently sinus rhythm will not start her on a beta devin as there is not enough time for titration. 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
[2017-03-21] MEDS: ENOXAPARIN 40 MG/0.4 ML SYRINGE SQ SCH (09:32)
--- NOTE | 2017-03-21 09:49 | P.PN ---
Subjective Progress Note Date: 03/21/17 Principal diagnosis: Status post IT nail insertion Patient is postop from IT nail insertion performed on 03/19/2017. She has no new complaints today. She has some pain at the surgical sites as expected. She is denying fever, chills, chest pain, shortness of breath, numbness, tingling or other. Objective - Vital Signs Vital signs: Vital Signs Temp 97.4 F L 03/21/17 07:00 Pulse 82 03/21/17 07:00 Resp 16 03/21/17 07:00 BP 142/63 03/21/17 07:00 Pulse Ox 98 03/21/17 07:00 Intake & Output 03/20/17 03/21/17 03/21/17 18:59 06:59 18:59 Intake Total 600 650 Output Total 1000 1325 Balance -400 -675 Intake: Intake, IV Titration 600 Amount Sodium Chloride 0.9% 100 600 ml As IV .STK-MED ONE with ceFAZolin 1,000 mg Rx#:[id number] Oral 650 Output: Urine 1000 1325 Uretheral ([place]) 1000 1325 Other: Voiding Method Indwelling Catheter Indwelling Catheter - Exam Inspection of the right hip shows benign surgical wounds. There is no evidence of active bleeding or drainage. Neurovascular status is intact with motor and sensation throughout the right lower extremity. 2+ dorsalis pedis pulse and less than 2 second cap refill is present distally. - Constitutional General appearance: Present: no acute distress - Psychiatric Psychiatric: Present: appropriate affect - Labs CBC & Chem 7: 03/18/17 20:20 03/18/17 20:20 Labs: Microbiology - Last 24 Hours (Table) 03/18/17 20:20 Blood Culture - Preliminary Blood No Growth after 48 hours 03/18/17 20:19 Urine Culture - Preliminary Urine,Catheterized Gram Neg Bacilli Assessment and Plan (1) Hip fracture, right Narrative/Plan: She'll continue with routine postop orthopedic protocol including pain management, wound care, physical therapy, DVT prophylaxis and medical management. She may be transferred to an F from an orthopedic standpoint when okay with internal medicine. Status: Acute Time with Patient: Less than 30
[2017-03-21] MEDS: traMADol 50 MG TAB PO PRN ×3 (09:51→21:40)
--- NOTE | 2017-03-21 12:06 | P.PN ---
Subjective Principal diagnosis: Patient sitting in chair at bedside awake and alert pleasantly confused. Noted to have positive gram-negative bacilli in urine on Rocephin awaiting sensitivity labral be repeated CK was elevated Objective - Vital Signs Vital signs: Vital Signs Temp 97.4 F L 03/21/17 07:00 Pulse 82 03/21/17 07:00 Resp 16 03/21/17 07:00 BP 142/63 03/21/17 07:00 Pulse Ox 98 03/21/17 07:00 Intake & Output 03/20/17 03/21/17 03/21/17 18:59 06:59 18:59 Intake Total 600 650 Output Total 1000 1325 Balance -400 -675 Intake: Intake, IV Titration 600 Amount Sodium Chloride 0.9% 100 600 ml As IV .STK-MED ONE with ceFAZolin 1,000 mg Rx#:[id number] Oral 650 Output: Urine 1000 1325 Uretheral ([place]) 1000 1325 Other: Voiding Method Indwelling Catheter Indwelling Catheter Indwelling Catheter - Constitutional General appearance: Present: mild distress - EENT Eyes: Present: PERRLA ENT: Present: hard of hearing Ears: bilateral: normal - Neck Neck: Present: normal ROM - Respiratory Respiratory: bilateral: CTA - Cardiovascular Rhythm: regular - Gastrointestinal General gastrointestinal: Present: soft - Integumentary Integumentary Comment(s): Dressing to right lower leg Integumentary: Present: normal - Neurologic Neurologic: Present: CNII-XII intact - Musculoskeletal Musculoskeletal: Present: generalized weakness - Psychiatric Psychiatric Comment(s): Patient awake and alert pleasantly confused - Labs CBC & Chem 7: 03/18/17 20:20 03/18/17 20:20 Labs: Microbiology - Last 24 Hours (Table) 03/18/17 20:20 Blood Culture - Preliminary Blood No Growth after 48 hours 03/18/17 20:19 Urine Culture - Preliminary Urine,Catheterized Gram Neg Bacilli - Imaging and Cardiology Chest x-ray: report reviewed Abdominal x-ray: report reviewed CT Scan - head: report reviewed Assessment and Plan Plan: Assessment Post repair of right hip fracture history of atrial fibrillation approximately sinus rhythm with a regular rhythm Urinary tract infection positive gram-negative bacilli on Rocephin Moderate senile dementia History of right lower leg melanoma being treated by Dr. Biggs Plan Repeat labs awaiting sensitivity on urine culture
[2017-03-21 13:06] LABS: Glucose 101 mg/dL (74-99); Total Protein 4.7 g/dL (6.3-8.2)
[2017-03-21 13:07] LABS: ALT 34 U/L (9-52); AST 37 U/L (14-36); Alkaline Phosphatase 46 U/L (38-126); Anion Gap 7 mmol/L; Blood Urea Nitrogen 12 mg/dL (7-17); Calcium 8.4 mg/dL (8.4-10.2); Carbon Dioxide 21 mmol/L (22-30); Chloride 103 mmol/L (98-107); Creatine Kinase 278 U/L (30-135); Non-African American GFR(MDRD) >60 (>60 ml/min/1.73 sqM); Potassium 3.7 mmol/L (3.5-5.1); Sodium 131 mmol/L (137-145); Total Bilirubin 0.6 mg/dL (0.2-1.3)
[2017-03-21 13:09] LABS: Basophils % (A) 0 %; CH 27.8; CHCM 29.4; Eosinophils # (A) 0.1 k/uL (0-0.7); Eosinophils % (A) 1 %; HCT 24.9 % (34.0-46.0); HDW 2.51; Hypochromasia Marked; Luc # (Auto) 0.14; Luc % (Auto) 2; Lymphocytes # (A) 1.3 k/uL (1.0-4.8); Lymphocytes % (A) 22 %; MCH 28.9 pg (25.0-35.0); MCHC 30.4 g/dL (31.0-37.0); MCV 95.1 fL (80.0-100.0); Monocytes # (A) 0.5 k/uL (0-1.0); Monocytes % (A) 8 %; Neutrophils % (A) 66 %; RBC 2.62 m/uL (3.80-5.40); RDW 14.7 % (11.5-15.5); WBC (Perox) 6.37
[2017-03-21 13:13] LABS: HGB 7.6 gm/dL (11.4-16.0)
[2017-03-21] MEDS ORDERED: DONEPEZIL 10 MG TAB PO SCH (21:00)
[2017-03-21] MEDS: SULFAMETHOX-TMP 800-160MG 1 EACH TAB PO SCH (21:40)
[2017-03-22] MEDS: traMADol 50 MG TAB PO PRN ×3 (05:14→17:03)
[2017-03-22] MEDS: SULFAMETHOX-TMP 800-160MG 1 EACH TAB PO SCH (08:51)
[2017-03-22] MEDS: ENOXAPARIN 40 MG/0.4 ML SYRINGE SQ SCH (08:51)
--- NOTE | 2017-03-22 11:20 | P.PN ---
Subjective Progress Note Date: 03/22/17 Principal diagnosis: Subtrochanteric fracture right hip. Status post closed reduction insertion intertrochanteric nail right hip. This is an 87-year-old female who is status post close reduction and insertion of intertrochanteric nail of the right hip. She is stable from an orthopedic standpoint. She is alert today. She has no new complaints or concerns today. Vital signs are stable. Hgb is 7.6. Objective - Vital Signs Vital signs: Vital Signs Temp 97.3 F L 03/22/17 07:00 Pulse 87 03/22/17 08:00 Resp 16 03/22/17 08:00 BP 130/89 03/22/17 07:00 Pulse Ox 97 03/22/17 07:00 Intake & Output 03/21/17 03/22/17 03/22/17 18:59 06:59 18:59 Intake Total 500 480 Output Total 800 Balance -300 480 Weight 63.503 kg Intake: Oral 500 480 Output: Urine 800 Uretheral ([place]) 800 Other: Voiding Method Indwelling Catheter Bedside Commode Bedside Commode Diaper Diaper Incontinent Incontinent # Voids 2 - Exam This is a pleasant 87-year-old female in no acute distress. She is alert today. Exam of the right lower extremity reveals that her incisions look good with no sign of infection. There is no erythema. There is minimal drainage on the dressing. She has full foot and ankle motion without difficulty or pain. Neurovascular status to the lower extremities intact. Multiple lesions about the lower leg as previously described. - Labs CBC & Chem 7: 03/21/17 12:14 03/21/17 12:14 Labs: Abnormal Lab Results - Last 24 Hours (Table) 03/21/17 03/21/17 Range/Units 12:14 12:14 RBC 2.62 L (3.80-5.40) m/uL Hgb 7.6 L D (11.4-16.0) gm/dL Hct 24.9 L (34.0-46.0) % MCHC 30.4 L (31.0-37.0) g/dL Sodium 131 L (137-145) mmol/L Carbon Dioxide 21 L (22-30) mmol/L Creatinine 0.50 L (0.52-1.04) mg/dL Glucose 101 H (74-99) mg/dL AST 37 H (14-36) U/L Creatine Kinase 278 H (30-135) U/L Total Protein 4.7 L (6.3-8.2) g/dL Albumin 2.4 L (3.5-5.0) g/dL Microbiology - Last 24 Hours (Table) 03/18/17 20:20 Blood Culture - Preliminary Blood No Growth after 72 hours 03/18/17 20:19 Urine Culture - Final Urine,Catheterized Enterobacter cloacae Assessment and Plan (1) Subtrochanteric fracture of right femur Status: Acute (2) Malignant melanoma of right lower leg Status: Acute Plan: The clinical findings are discussed the patient and her nurse. We will continue with physical therapy. We're planning discharge to inpatient rehab when cleared medically. We will defer management of possible transfusion to internal medicine.
[2017-03-22 11:37] LABS: Basophils % (A) 1 %; CH 28.1; CHCM 30.1; Eosinophils # (A) 0.1 k/uL (0-0.7); Eosinophils % (A) 2 %; HCT 26.4 % (34.0-46.0); HDW 2.59; HGB 7.4 gm/dL (11.4-16.0); Hypochromasia Marked; Luc # (Auto) 0.12; Luc % (Auto) 2; Lymphocytes # (A) 1.1 k/uL (1.0-4.8); Lymphocytes % (A) 19 %; MCH 26.1 pg (25.0-35.0); MCHC 27.9 g/dL (31.0-37.0); MCV 93.6 fL (80.0-100.0); Monocytes # (A) 0.4 k/uL (0-1.0); Monocytes % (A) 7 %; Neutrophils % (A) 69 %; RBC 2.82 m/uL (3.80-5.40); RDW 14.8 % (11.5-15.5); WBC 5.7 k/uL (3.8-10.6); WBC (Perox) 6.26
[2017-03-22 11:47] LABS: Anion Gap 7 mmol/L; Blood Urea Nitrogen 12 mg/dL (7-17); Calcium 8.5 mg/dL (8.4-10.2); Carbon Dioxide 24 mmol/L (22-30); Chloride 101 mmol/L (98-107); Glucose 102 mg/dL (74-99); Non-African American GFR(MDRD) >60 (>60 ml/min/1.73 sqM); Potassium 4.4 mmol/L (3.5-5.1); Sodium 132 mmol/L (137-145)
[2017-03-22 14:41] VITALS: BP 139/60; TEMP 98
--- NOTE | 2017-03-22 15:39 | P.DS ---
Providers Date of admission: 03/18/17 21:55 Expected date of discharge: 03/22/17 Attending physician: Ivan Barrera Consults: 03/18/17 21:55 Consult Physician Routine Consulting Provider: Teo Milligan Consult Reason/Comments: hipFx Do you want consulting provider notified?: Yes Primary care physician: Ivan Barrera Hospital Course: 87-year-old female was admitted through the emergency room after a fall in order to have right intertrochanteric fracture of the right hip. His surgical repair per Dr. Maddox. Patient was found that urinary tract infection susceptible to background. Patient develop postop anemia CBCs redrawn in three days. Patient has a history of melanoma of the right lower leg is seeing Dr. Biggs for that. Patient has a history of the atrial fibrillation paroxysmal. Patient is moderately demanded. Severe primary degenerative osteoarthritis. Assessment right hip fracture post repair history of paroxysmal atrial fibrillation moderate senile dementia severe primary degenerative osteoarthritis urinary tract infection susceptible to a back drum postoperative anemia CBC to be rechecked in three days Plan transferred to extended care facility for rehab CBC in three days home medications to continue Bactrim for eight days Patient Condition at Discharge: Fair Plan - Discharge Summary New Discharge Prescriptions: New Warfarin [Coumadin] 1 mg PO DAILY #30 tablet Acetaminophen Tab [Tylenol] 650 mg PO Q6HR PRN tab PRN Reason: Fever and/ or Mild Pain Sulfamethox-Tmp 800-160Mg [Bactrim DS 800-160 mg] 1 each PO BID tab traMADol HCl [Ultram] 50 mg PO QID PRN #120 tab PRN Reason: Severe Pain/Discomfort Continue Naproxen [Naprosyn] 375 mg PO Q12HR Donepezil [Aricept] 10 mg PO HS Nystatin 100,000Unit/gm Cream [Mycostatin Cream] 1 applic TOPICAL BID Discharge Medication List Naproxen [Naprosyn] 375 mg PO Q12HR 11/28/15 [History] Donepezil [Aricept] 10 mg PO HS 03/18/17 [History] Nystatin 100,000Unit/gm Cream [Mycostatin Cream] 1 applic TOPICAL BID 03/19/17 [ History] Acetaminophen Tab [Tylenol] 650 mg PO Q6HR PRN tab 03/22/17 [Rx] Sulfamethox-Tmp 800-160Mg [Bactrim DS 800-160 mg] 1 each PO BID tab 03/22/17 [ Rx] Warfarin [Coumadin] 1 mg PO DAILY #30 tablet 03/22/17 [Rx] traMADol HCl [Ultram] 50 mg PO QID PRN #120 tab 03/22/17 [Rx] Follow up Appointment(s)/Referral(s): Ivan Barrera MD [Primary Care Provider] - 1-2 days Teo Milligan MD [STAFF PHYSICIAN] - 4 Weeks Ambulatory/Diagnostic Orders: Complete Blood Count w/diff [LAB.AMB] Location: Determined By Patient Prothrombin Time INR [LAB.AMB] Location: Determined By Patient Activity/Diet/Wound Care/Special Instructions: Toe touch wt bearing only RLE w walker. Remove sutures 2 weeks post op. CBC IN THREE DAYS 03/25/17 Discharge Disposition: TRANSFER TO SNF/ECF
[2017-03-22 17:55] VITALS: PULSE 87
--- NOTE | 2017-03-27 10:01 | CDI ---
In responding to this query, please exercise your independent professional judgment. The [facility] Coding Staff and Clinical Documentation Specialists appreciate your assistance in clarifying documentation, maintaining compliance with coding guidelines, accurately documenting patients condition and capturing severity of illness. The fact that a question is asked does not imply that any particular answer is desired or expected. Communication forms are a method of clarifying documentation and are not made part of the Legal Health Record. Thank you in advance for your clarification. Last Revision, April 2015 [facility] [address] [facility] [place] [address] Documentation Clarification Form Date: 03/27/2017 9:52:00 AM From: Clover Curtis Admit Date: 03/18/2017 9:55:00 PM Patient Name: Ivory Adams Visit Number: [id number] Discharge Date: 03/22/17 Dr. Ivan Barrera/Jen Bowen diagnosis of postoperative anemia lacks specificity to accurately reflect your patients severity of condition and clarification is needed. Patient history/risk factors: S/P right intertrochanteric/subtrochanteric fx Clinical Indicators: Hemoglobin: 10.7, 7.6, 7.4 Hematocrit: 34.2, 24.9,26.4 Treatment: No blood transfusion but CBC was done on 03/18, 03/21, 03/22 and order for repeat CBC 3 days post discharge. In order to capture the severity of condition, please clarify the type of anemia and etiology if known: Acute blood loss anemia Acute on chronic blood loss anemia Chronic blood loss anemia Iron deficiency anemia Hemolytic anemia Drug induced anemia Anemia due to malignancy Nutritional anemia Anemia of chronic kidney disease Unable to determine Other, please specify Please document addendum in your discharge summary in order to capture severity of illness and risk of mortality. Include clinical findings that support your diagnosis. FYI: Press F11 to launch patient chart. If you have a question about this query, please contact Yumiko Abernathy, Online Marketing Director, [facility] at [phone] between 8am and 5pm. JORDAN
--- NOTE | 2017-03-27 10:37 | P.PN ---
Progress Note - Text ammend acute blood loss anemia secondary to post -op hip repair
== END 2017-03-22 17:54 | DRG 481 ==
LOC: EC 19:46 → 3SUR 21:55 → EEVIPCON 21:55 → 3SUR 03-19 22:25
PROVIDERS: ADMIT Family Medicine; ATTEND Family Medicine
PROC: 0QS636Z Reposition Right Upper Femur with Intramedullary Internal Fixation Device, Percutaneous Approach (ICD-10-PCS; principal; 2017-03-19 10:00)
DX: S72.141A Displaced intertrochanteric fracture of right femur, initial encounter for closed fracture (principal); N39.0 Urinary tract infection, site not specified; C43.71 Malignant melanoma of right lower limb, including hip; F03.90 Unspecified dementia, unspecified severity, without behavioral disturbance, psychotic disturbance, mood disturbance, and anxiety; D62 Acute posthemorrhagic anemia; S72.21XA Displaced subtrochanteric fracture of right femur, initial encounter for closed fracture; I48.0 Paroxysmal atrial fibrillation; I34.1 Nonrheumatic mitral (valve) prolapse; M06.9 Rheumatoid arthritis, unspecified; M19.91 Primary osteoarthritis, unspecified site; M81.0 Age-related osteoporosis without current pathological fracture; Z79.1 Long term (current) use of non-steroidal anti-inflammatories (NSAID); Z91.81 History of falling; Z79.899 Other long term (current) drug therapy; W01.0XXA Fall on same level from slipping, tripping and stumbling without subsequent striking against object, initial encounter; Y92.009 Unspecified place in unspecified non-institutional (private) residence as the place of occurrence of the external cause
CPT/HCPCS: 36415; 51702; 70450; 71010; 72125; 73502; 80048; 80053; 81001; 81210; 82550; 82553; 83605; 84100; 84484; 85025; 85610; 85730; 87040; 87077; 87086; 87186; 88304; 88307; 88311; 88341; 88342; 93005; 96361; 96374; 99285